=== PATIENT | female | born 1940 | race Caucasian/White ===

== ENCOUNTER 2018-01-13 06:42 | Inpatient (IN) | payer MEDICARE ==
[~2018-01-13] VITALS: Ht 170.2 cm; Wt 86.0 kg
[~2018-01-13 06:42] MED LIST: ACET-1600 PO; ESCI20TA10 PO; LISI5TAB7 PO; LORA10TA3 PO; VALA500T PO; VITAMIN B GUMMIES PO
[2018-01-13] MEDS ORDERED: SODIUM CHLORIDE 0.9% 100 ML ONE (06:56)
[2018-01-13] MEDS ORDERED: TRANEXAMIC ACID 100 MG/ML, 10ML ONE ×2 (06:56)
[2018-01-13] MEDS ORDERED: KETOROLAC 60 MG/2 ML ONE (06:56)
[2018-01-13] MEDS ORDERED: ROPIvacaine/PF 0.2%, 20 ML ONE (06:56)
[2018-01-13] MEDS ORDERED: EPINEPHRINE 1 MG/ML, 1ML ONE (06:56)
[2018-01-13] MEDS ORDERED: GABAPENTIN 300 MG CAPSULE PO ONE (07:00)
[2018-01-13] MEDS ORDERED: ONDANSETRON ODT 8 MG PO ONE (07:00)
[2018-01-13] MEDS ORDERED: ACETAMINOPHEN 500 MG TABLET PO ONE (07:00)
[2018-01-13 07:08] VITALS: BP 135/85
[2018-01-13] MEDS: LACTATED RINGERS 1,000 ML IV SCH ×3 (07:28→13:35)
[2018-01-13] MEDS ORDERED: PROPOFOL 50 ML ONE (08:03)
[2018-01-13] MEDS ORDERED: BUPIVACAINE/PF 0.25% ONE (08:04)
[2018-01-13] MEDS ORDERED: MIDAZOLAM 1 MG/ML, 2ML ONE (08:04)
[2018-01-13] MEDS ORDERED: LIDOCAINE-MPF 2% ,5ML ONE (08:04)
[2018-01-13] MEDS ORDERED: FENTANYL PF 100 MCG/2ML ONE ×2 (08:04)
[2018-01-13] MEDS ORDERED: PHENYLEPHRINE 10 MG/ML ONE (09:41)
[2018-01-13] MEDS ORDERED: DEXAMETHASONE 4 MG/ML, 1ML ONE (09:41)
[2018-01-13] MEDS ORDERED: CEFAZOLIN 1,000 MG ONE (09:41)
[2018-01-13] MEDS ORDERED: BISACODYL 10 MG SUPP PR PRN (10:00)
[2018-01-13] MEDS ORDERED: ONDANSETRON 2MG/ML, 2ML IV PRN (10:00)
[2018-01-13] MEDS ORDERED: PROMETHAZINE 12.5 MG SUPP PR PRN (10:00)
[2018-01-13] MEDS ORDERED: ONDANSETRON 4 MG TABLET PO PRN (10:00)
[2018-01-13] MEDS ORDERED: DIAZEPAM 5 MG TABLET PO PRN (10:00)
[2018-01-13] MEDS ORDERED: LORazepam 1MG TABLET PO PRN (10:00)
[2018-01-13] MEDS ORDERED: ZOLPIDEM 5MG TABLET PO PRN (10:00)
[2018-01-13] MEDS ORDERED: ALUMINUM/MAG/SIMETHICONE 30 ML UDC PO PRN (10:00)
[2018-01-13] MEDS ORDERED: MAGNESIUM HYDROXIDE 8%, 30ML UDC PO PRN (10:00)
[2018-01-13] MEDS ORDERED: PROMETHAZINE 25 MG/ML, 1ML IM PRN (10:00)
[2018-01-13] MEDS ORDERED: DIPHENHYDRAMINE 50 MG CAPSULE PO PRN (10:00)
[2018-01-13] MEDS: ACETAMINOPHEN 650 MG/20.3 ML UDC PO SCH ×2 (10:00→18:00)
[2018-01-13] MEDS ORDERED: SENNA/DOCUSATE TABLET PO PRN (10:00)
[2018-01-13] MEDS ORDERED: HYDROmorphone 1 MG/ML, 1ML IV PRN (10:00)
[2018-01-13] MEDS ORDERED: LIDOCAINE GEL 2%, 5ML ONE (10:53)
[2018-01-13] MEDS ORDERED: ALBUTEROL/IPRATROPIUM 2.5MG/0.5MG, 3 ML NPPB PRN (11:00)
[2018-01-13] MEDS ORDERED: METOCLOPRAMIDE 5 MG/ML, 2ML IV PRN (11:00)
[2018-01-13] MEDS ORDERED: DIAZEPAM 5 MG/ML, 2ML IVPush PRN (11:00)
[2018-01-13] MEDS ORDERED: OXYcodone 5 MG/5 ML ORAL.SOL UDC PO PRN (11:00)
[2018-01-13] MEDS ORDERED: EPHEDRINE 50 MG/ML, 1ML IM PRN (11:00)
[2018-01-13] MEDS ORDERED: LABETALOL 5MG/ML, 20ML IV PRN (11:00)
[2018-01-13] MEDS ORDERED: FENTANYL PF 100 MCG/2ML IV PRN (11:00)
[2018-01-13] MEDS ORDERED: PROMETHAZINE 25 MG/ML, 1ML IV PRN (11:00)
[2018-01-13] MEDS ORDERED: MORPHINE SULFATE 4 MG/ML, 1ML IVPush PRN (11:00)
[2018-01-13] MEDS ORDERED: ONDANSETRON ODT 8 MG PO PRN (11:00)
[2018-01-13] MEDS ORDERED: TRANEXAMIC ACID 1,000 MG in SODIUM CHLORIDE 0.9% 100 ML IVPB ONE (12:30)
[2018-01-13 12:59] VITALS: BP 125/71
[2018-01-13] MEDS: D5%-0.45% NACL 1,000 ML IV SCH ×2 (13:31→23:02)
[2018-01-13] MEDS: OXYcodone IR 5MG TABLET PO PRN ×2 (15:51→23:59)
[2018-01-13] MEDS: ASPIRIN 81 MG TABLET EC PO SCH (18:00)
[2018-01-13] MEDS: CEFAZOLIN PMX 2GM/50ML 50 ML IVPB SCH (18:00)
[2018-01-13 18:56] VITALS: BP 115/62
[2018-01-13] MEDS: DOCUSATE 100 MG CAPSULE PO SCH (20:24)
[2018-01-13 23:23] VITALS: BP 109/60
[2018-01-14] MEDS: CEFAZOLIN PMX 2GM/50ML 50 ML IVPB SCH (02:05)
[2018-01-14] MEDS: ACETAMINOPHEN 650 MG/20.3 ML UDC PO SCH ×2 (02:11→10:07)
[2018-01-14 05:00] VITALS: BP 106/64
[2018-01-14] MEDS: ASPIRIN 81 MG TABLET EC PO SCH (05:26)
[2018-01-14] MEDS ORDERED: DEXAMETHASONE 4 MG/ML, 1ML IVPush SCH (06:00)
[2018-01-14 07:18] VITALS: BP 125/61
[2018-01-14] MEDS: D5%-0.45% NACL 1,000 ML IV SCH (08:23)
[2018-01-14] MEDS ORDERED: CYANOCOBALAMIN 1,000 MCG TABLET PO SCH (09:00)
[2018-01-14] MEDS ORDERED: VALACYCLOVIR 500MG TABLET PO SCH (09:00)
[2018-01-14] MEDS ORDERED: LISINOPRIL 5 MG TABLET PO SCH (09:00)
[2018-01-14] MEDS ORDERED: CITALOPRAM 20 MG TABLET PO SCH (09:00)
[2018-01-14] MEDS ORDERED: LORATADINE 10 MG TABLET PO SCH (09:00)
[2018-01-14] MEDS: DOCUSATE 100 MG CAPSULE PO SCH (09:20)
[2018-01-14] MEDS ORDERED: OXYC5CAP2 PO (10:47)
[2018-01-14] MEDS ORDERED: KETOROLAC 30 MG/1 ML IV SCH (12:30)
== END 2018-01-14 11:09 | disposition home or self-care (01) | DRG 470 ==
LOC: OUT 06:42 → ORIP 09:32 → 4NOR 12:21 → DCLOUNGE 01-14 10:56
PROVIDERS: ADMIT Orthopaedic Surgery; ATTEND Orthopaedic Surgery
PROC: 0SRC0J9 Replacement of Right Knee Joint with Synthetic Substitute, Cemented, Open Approach (ICD-10-PCS; principal; 2018-01-13 09:45)
DX: M17.11 Unilateral primary osteoarthritis, right knee (principal); I10 Essential (primary) hypertension; F41.9 Anxiety disorder, unspecified; Z88.2 Allergy status to sulfonamides; Z91.013 Allergy to seafood
CPT/HCPCS: 36415; 85018; C1713; J0171; J0690; J1100; J1885; J2250; J2704; J2795; J3010; J3490; Q0162; C1776; J2370; J7120